=== PATIENT | male | born 1965 | race Hispanic/Latino ===

== ENCOUNTER 2016-12-26 07:47 | Emergency (ER) | payer OTHER, SELFPAY ==
[2016-12-26] MEDS ORDERED: Adacel (T-DAP) 0.5 ML VIAL ONE (08:05)
[2016-12-26] MEDS ORDERED: Acetaminophen 325 MG Suppository ONE (08:06)
[2016-12-26] MEDS ORDERED: Acetaminophen 325 MG TAB ONE (08:06)
[2016-12-26] MEDS ORDERED: Ibuprofen 200 MG TAB ONE (08:07)
[2016-12-26] MEDS ORDERED: Bacitracin Zinc 1 Packet ONE ×2 (08:33)
[2016-12-26] MEDS ORDERED: Cephalexin 500 MG CAP ONE (08:40)
--- NOTE | 2016-12-26 08:50 | RAD ---
3 VIEWS LEFT INDEX DIGIT: Date: 12/26/16 INDICATION: Laceration, amputation injury. FINDINGS: There is partial absence of the tuft of the second digit distal phalanx of the left hand. Associated soft tissue absence is noted. IMPRESSION: Amputation injury centered at the tuft of the second digit distal phalanx. POS: [facility]
== END 2016-12-26 08:51 | disposition home or self-care (01) ==
LOC: NAV ERS 07:47
DX: S62.631A Displaced fracture of distal phalanx of left index finger, initial encounter for closed fracture (principal); Z23 Encounter for immunization; Z87.891 Personal history of nicotine dependence; W29.8XXA Contact with other powered hand tools and household machinery, initial encounter; Y92.69 Other specified industrial and construction area as the place of occurrence of the external cause; Y99.0 Civilian activity done for income or pay
CPT/HCPCS: 90471; 90715; 99001